=== PATIENT | female | born 1945 | race Caucasian/White ===

== ENCOUNTER 2019-05-08 12:56 | Emergency (ER) | payer MEDICARE ==
[~2019-05-08] VITALS: Ht 160 cm; Wt 108.0 kg
[2019-05-08 12:59] VITALS: BP 161/64
--- NOTE | 2019-05-08 13:13 | NUR ---
Pt ambulated to bed 4.
[2019-05-08] MEDS ORDERED: NACL 0.9% 1,000 ML IV ONE (13:30)
[2019-05-08] MEDS ORDERED: LEVOFLOXACIN 500 MG/D5W PREMIX 100 ML IV ONE (13:30)
[2019-05-08] MEDS ORDERED: KETOROLAC 30 MG/ML VIAL IVP ONE (13:30)
[2019-05-08] MEDS ORDERED: metroNIDAZOLE 500 MG/NS PREMIX 100 ML IV ONE (13:30)
--- NOTE | 2019-05-08 13:45 | NUR ---
PATIENT BIB TO ED, C/O RLQ ABDOMINAL PAIN RADIATING TO RIGHT LOWER BACK X 2 WEEKS & WORSENING 3 DAYS. PAIN TODAY 04/24, ALSO C/O N/V/D X 1 WEEK. RR EVEN AND UNLABORED, BED IN LOWEST POSITION, ED MD DR. FANG MADE AWARE. HX: DM, A FIB, HTN, DIVERTICULITIS , KIDNEY DISEASE, gall removal, pace maker in 2018.
[2019-05-08] MEDS ORDERED: DILT180C84 PO (13:54)
[2019-05-08] MEDS ORDERED: APIX5TAB PO (13:54)
[2019-05-08] MEDS ORDERED: ACET-2619 PO (13:54)
[2019-05-08] MEDS ORDERED: AMIO200T5 PO (13:54)
[2019-05-08] MEDS ORDERED: CINN500C4 PO (13:54)
[2019-05-08] MEDS ORDERED: CRAN450C PO (13:54)
[2019-05-08] MEDS ORDERED: TEMA15CA24 PO (13:54)
[2019-05-08] MEDS ORDERED: LISI-420 PO (13:54)
[2019-05-08] MEDS ORDERED: CYAN100T65 PO (13:54)
[2019-05-08] MEDS ORDERED: ROSU40TA PO (13:54)
[2019-05-08] MEDS ORDERED: ASCO-786 PO (13:54)
[2019-05-08] MEDS ORDERED: SYN.075 PO (13:54)
[2019-05-08] MEDS ORDERED: NITR0.4T2 SL (13:54)
[2019-05-08] MEDS ORDERED: VITA1TAB44 PO (13:54)
[2019-05-08] MEDS ORDERED: VITD1000 PO (13:54)
[2019-05-08] MEDS ORDERED: [UNRECOGNIZED DRUG - CODE] PO (13:54)
[2019-05-08] MEDS ORDERED: INSU100S22 SUBQ (13:54)
[2019-05-08] MEDS ORDERED: ORE25 PO (13:54)
[2019-05-08] MEDS ORDERED: METO100T14 PO (13:54)
[2019-05-08] MEDS ORDERED: MAGN400S60 PO (13:57)
[2019-05-08] MEDS ORDERED: CIDE300T PO (13:57)
[2019-05-08] MEDS ORDERED: VITE200 PO (13:57)
[2019-05-08 14:09] LABS: BASOPHILS % (AUTO) 0.5 % (0.0-2.0); EOSINOPHILS # (AUTO) 0.2 K/uL (0-0.4); EOSINOPHILS % (AUTO) 3.8 % (0.0-4.0); HEMATOCRIT 41.9 % (36-48); HEMOGLOBIN 13.6 g/dL (12.0-16.0); LYMPHOCYTES # (AUTO) 1.5 K/uL (2.5-16.5); LYMPHOCYTES % (AUTO) 27.6 % (20.5-51.1); MEAN CORPUSCULAR HEMOGLOBIN 29 pg (27-31); MEAN CORPUSCULAR HGB CONC 33 g/dL (33-37); MEAN CORPUSCULAR VOLUME 87.9 fL (80-94); MONOCYTES # (AUTO) 0.4 K/uL (0.8-1.0); MONOCYTES % (AUTO) 6.9 % (1.7-9.3); NEUTROPHILS # (AUTO) 3.4 K/uL (1.8-7.7); NEUTROPHILS % (AUTO) 61.2 % (42.2-75.2); PLATELET COUNT (AUTO) 163 K/uL (140-450); RED BLOOD CELL COUNT(AUTO) 4.76 MIL/uL (4.20-5.40); RED CELL DISTRIBUTION WIDTH 14.8 % (11.6-13.7); WHITE BLOOD COUNT (AUTO) 5.6 K/uL (4.8-10.8)
[2019-05-08 14:13] LABS: APPEARANCE,URINE CLEAR (CLEAR); BILIRUBIN,URINE NEGATIVE (NEGATIVE); BLOOD, URINE NEGATIVE (NEGATIVE); COLOR,URINE YELLOW (YELLOW); LEUKOCYTE ESTERASE ,URINE NEGATIVE (NEGATIVE); NITRITE, URINE NEGATIVE (NEGATIVE); UGLUCOSE NEGATIVE (NEGATIVE)
--- NOTE | 2019-05-08 14:30 | NUR ---
PATIENT RESTING IN BED ASLEEP RESTING COMFORTABLY AT THIS TIME
[2019-05-08 14:36] LABS: ANION GAP 12.2 (8-16); CARBON DIOXIDE 30.7 mmol/L (21-32); CHLORIDE 100 mmol/L (98-107); CREATININE 1.6 mg/dL (0.6-1.3); GLUCOSE 148 mg/dL (74-106); POTASSIUM 4.9 mmol/L (3.5-5.1); SODIUM SERUM 138 mmol/L (136-145); UREA NITROGEN, BLOOD 26 mg/dL (7-18)
[2019-05-08 14:41] LABS: ALBUMIN 3.6 g/dL (3.4-5.0); AMYLASE 51 U/L (25-115); ASPARTATE AMINOTRANSFERASE 24 U/L (15-37); LIPASE 73 U/L (73-393); TOTAL BILIRUBIN 0.5 mg/dL (0.0-1.0)
--- NOTE | 2019-05-08 16:13 | NUR ---
PATIENT TAKEN TO CT WITH [facility]NA VIA [employer]YRMONTY.
--- NOTE | 2019-05-08 16:24 | NUR ---
PATIENT RETURN FROM CT.
[2019-05-08 17:32] VITALS: BP 155/64
--- NOTE | 2019-05-08 17:32 | NUR ---
PATIENT DISCHARGED BY DR. FANG, PRESCRIPTION FOR MILK OF MAGNESIA 1200MG/15ML GIVEN, ALL QUESTIONS AND CONCERNS ADDRESSED, IN STABLE CONDITION.
== END 2019-05-08 17:25 | disposition home or self-care (01) ==
LOC: MED 12:56
DX: K59.00 Constipation, unspecified (principal); R11.2 Nausea with vomiting, unspecified; R19.7 Diarrhea, unspecified; I10 Essential (primary) hypertension; E11.9 Type 2 diabetes mellitus without complications; I48.91 Unspecified atrial fibrillation; Z79.899 Other long term (current) drug therapy; Z90.49 Acquired absence of other specified parts of digestive tract; Z79.1 Long term (current) use of non-steroidal anti-inflammatories (NSAID); Z87.19 Personal history of other diseases of the digestive system; Z95.0 Presence of cardiac pacemaker
CPT/HCPCS: 36415; 74176; 80053; 81003; 82150; 82948; 83690; 85025; 96365; 96366; 96368; 96375; 99284; J1885; J1956; J3490; J7030